=== PATIENT | male | born 1945 | race Caucasian/White ===

== ENCOUNTER 2020-08-22 22:54 | Inpatient (IN) | payer MEDICARE, BC ==
[~2020-08-22] VITALS: Ht 167.6 cm; Wt 64.9 kg
--- NOTE | 2020-08-22 23:20 | NUR ---
pt bibpa for aggressive behavior toward staff and breaking a window. Pt aaox1 breathing evenly and unlabored. Pt calm and cooperative at the moment. Upon assessment skin is warm, dry, and intact. Pt attached to monitor and pox. pt given blanket and call light within reach. will continue to monitor.
--- NOTE | 2020-08-22 23:20 | NUR ---
Note laurie in EDM - 08/23/20 at 0229 by ZENA pt bibpa for aggressive behavior toward staff and breathing a window. Pt aaox1 breathing evenly and unlabored. Pt calm and cooperative at the moment. Upon assessment skin is warm, dry, and intact. Pt attached to monitor and pox. pt given blanket and call light within reach. will continue to monitor.
[2020-08-23 00:57] LABS: BASOPHILS % (AUTO) 0.5 % (0.0-2.0); EOSINOPHILS % (AUTO) 2.1 % (0.0-6.0); HEMATOCRIT 34 % (39-51); HEMOGLOBIN 11.3 g/dL (13.5-17.5); LYMPHOCYTES # (AUTO) 1.6 /CMM (0.8-4.8); LYMPHOCYTES % (AUTO) 28.2 % (20.0-44.0); MEAN CORPUSCULAR HGB CONC 34 g/dl (31.0-36.0); MEAN CORPUSCULAR VOLUME 93 fL (80-96); MONOCYTES # (AUTO) 0.7 /CMM (0.1-1.30); MONOCYTES % (AUTO) 12.8 % (2.0-12.0); NEUTROPHILS # (AUTO) 3.1 /CMM (1.8-8.9); NEUTROPHILS % (AUTO) 56.4 % (43.0-81.0); PLATELET COUNT (AUTO) 197 /CMM (150-450); RED BLOOD CELL COUNT(AUTO) 3.59 MIL/uL (4.5-6.0); WHITE BLOOD COUNT (AUTO) 5.5 K/uL (4.3-11.0)
[2020-08-23] MEDS ORDERED: LIDOCAINE 2% JEL UROJET 10 ML MM ONE (01:08)
--- NOTE | 2020-08-23 01:21 | NUR ---
urine sent to lab
[2020-08-23 01:44] LABS: CALCIUM, SERUM 8.6 mg/dL (8.5-10.1); CARBON DIOXIDE 27 mmol/L (21-32); CHLORIDE 107 mmol/L (98-107); CREATININE 1.2 mg/dL (0.6-1.3); GLUCOSE 99 mg/dL (74-106); SODIUM SERUM 142 mmol/L (136-145); UREA NITROGEN, BLOOD 20 mg/dL (7-18)
[2020-08-23 01:45] LABS: BILIRUBIN,URINE NEGATIVE (NEGATIVE); COLOR,URINE YELLOW (YELLOW); LEUKOCYTE ESTERASE ,URINE LARGE (NEGATIVE); NITRITE, URINE POSITIVE (NEGATIVE); PROTEIN,URINE 100 mg/dl (NEGATIVE); UGLUCOSE NEGATIVE (NEGATIVE); UROBILINOGEN,URINE 0.2 EU/dL (0.2)
[2020-08-23 01:49] LABS: ACETAMINOPHEN 3 ug/ml (10-30); ALANINE AMINOTRANSFERASE 39 U/L (12-78); ALBUMIN 2.8 g/dL (3.4-5.0); ALCOHOL, BLOOD < 3 mg/dL (0-0); ALKALINE PHOSPHATASE 70 U/L (46-116); ASPARTATE AMINOTRANSFERASE 17 U/L (15-37); BILIRUBIN,DIRECT 0.1 mg/dL (0.0-0.2); BILIRUBIN,TOTAL 0.3 mg/dL (0.2-1.0); TOTAL PROTEIN, SERUM 5.9 g/dL (6.4-8.2)
[2020-08-23 01:52] LABS: BACTERIA,URINE Many /HPF (None Seen); RBC,URINE 21-50 /HPF (0-2); SQUAMOUS EPITHELIAL CELL,UR Few /HPF (None Seen); WBC,URINE TOO NUMEROUS TO COUN /HPF (0-3)
[2020-08-23] MEDS ORDERED: CEPHALEXIN MONOHYDRATE 500 MG CAPSULE PO ONE ×2 (02:30→02:48)
--- NOTE | 2020-08-23 02:34 | NUR ---
SPOKE TO [facility] FOR PSYCH EVAL.
--- NOTE | 2020-08-23 03:39 | NUR ---
KAY YANEZ CNC ROUTER OPERATOR AT BEDSIDE TO PSYCH EVAL.
--- NOTE | 2020-08-23 04:48 | NUR ---
Gave report to siena Tillman for crystal
[2020-08-23] MEDS ORDERED: DOCU-141 PO (04:50)
[2020-08-23] MEDS ORDERED: DIVA250T PO (04:53)
[2020-08-23] MEDS ORDERED: FAMO20TA8 PO (04:54)
[2020-08-23] MEDS ORDERED: BISA-79 RC (04:58)
[2020-08-23] MEDS ORDERED: MAG HYDROX/AL HYDROX/SIMETH 30 ML UDC PO PRN (05:30)
[2020-08-23] MEDS ORDERED: MAGNESIUM HYDROXIDE 30 ML UDC PO PRN (05:30)
[2020-08-23] MEDS ORDERED: BLOOD SUGAR DIAGNOSTIC 1 EACH STRIP IN ONE (05:30)
--- NOTE | 2020-08-23 05:30 | NUR ---
ADMISSION NOTES: ADMITTED THIS 75Y/O MALE FROM [facility] /INITIALLY FROM [facility] TO [facility] UNIT ON 5150 HOLD. PER HOLD PT. WAS CONFUSED, COULD NOT REMEMBER WHERE HE WAS OR WHO HE WAS. PT. KEPT TALKING ABOUT GOING TO [facility] TO FIX STUFF. PT. WAS TALKING IN CIRCLES, PER FLIGHT ENGINEER INSTRUCTOR JOANNA FROM SNF, PT. BECAME AGGRESSIVE TOWARDS STAFF CARING FOR HIM, HIT STAFF & BROKE A WINDOW. FLIGHT ENGINEER INSTRUCTOR ALSO REPORTED THAT PT. HAS BEEN HAVING INCREASING AGGRESSIVE BEHAVIORS, REFUSING MEALS & SOMETIMES MEDICATIONS. PT. IS DX WITH PSYCHOTIC DISORDER & ON DEPAKOTE & ZYPREXA. UPON FACE TO FACE ASSESSMENT PATIENT IS A & O X 1, VERY CONFUSED & FORGETFUL, UNCOOPERATIVE, ANXIOUS/RESTLESS AT TIMES, LABILE, HYPERVERBAL, DISORGANIZED, EASILY GETS AGITATED. DENIES SI /HI/AVH AT THIS TIME. PT. HAS POOR INSIGHT, POOR JUDGEMENT. PT. REFUSED TO SIGNS ADMISSION CONSENT PAPERS DUE TO MENTAL STATUS. PT. REFUSED FLU & PNEUMO VACCINE WELL. PT. REFUSED FULL BODY ASSESSMENT, RN TRANSFER WAS ABLE TO TAKE FEW PICTURES & PT. GOT ANXIOUS & AGITATED. BOTH MD AWARE AND NOTIFIED OF THE ADMISSION, BELONGINGS CONTRABAND WERE DONE, PT. RIGHTS DISCUSS BY RN TRANSFER, PROVIDED THE PT. WITH HANDBOOK, MEDICATIONS GUIDE, ENVIRONMENTAL SAFETY CHECK DONE, NON AMBULATORY/UNSTEADY GAIT, INCONTINENT, ENCOURAGED PT. VERBALIZE ANY FEELINGS/CONCERN TO STAFF, ORIENTED TO UNIT POLICY, NO ACUTE DISTRESS NOTED, VITAL SIGNS WNL, DENIES ANY PAIN AT THIS TIME, WILL CONTINUE TO MONITOR FOR Q15 SAFETY, MOOD AND BEHAVIOR.
[2020-08-23 05:39] VITALS: BP 132/77
[2020-08-23] MEDS ORDERED: LACO10SO3 PO (06:16)
[2020-08-23] MEDS ORDERED: MAGN400T26 PO (06:19)
[2020-08-23] MEDS ORDERED: METO25TA6 PO (06:20)
[2020-08-23] MEDS ORDERED: OLAN2.5T3 PO (06:23)
[2020-08-23] MEDS ORDERED: DEXT15DR6 EACHEYE (06:25)
[2020-08-23] MEDS ORDERED: MULT-1119 PO (06:28)
--- NOTE | 2020-08-23 06:56 | NUR ---
RN NOTE PATIENT NOTED WITH BOTH EYE REDNESS, DROOPING LOWER EYELIDS. CHARGE NURSE MADE AWARE. WILL ENDORSE TO AM RN TO INFORM MD. PATIENT IS AWAKE, CONFUSED, UP IN A CARTER CHAIR AT THIS TIME.
--- NOTE | 2020-08-23 07:09 | NUR ---
RN NOTE CALLED ISAEL GERMAIN AT [phone], LEFT A VOICEMAIL, ALSO CALLED BLAINE () AT [phone] & LEFT A VOICEMAIL REGARDING PATIENT'S ADMISSION AT [facility] UNIT. LEFT A CALL BACK NUMBER FOR ANY UPDATES.
--- NOTE | 2020-08-23 07:34 | NUR ---
RN NOTE PATIENT'S MEDICATIONS ENTERED BUT NEEDS TO BE RECONCILED BY MD. ENDORSED TO AM RN & CHARGE NURSE.
[2020-08-23 08:00] VITALS: BP 99/68
[2020-08-23] MEDS: Z GUARD REMEDY 2 OZ OINT TP SCH (09:13)
[2020-08-23] MEDS: DIVALPROEX SODIUM 125 MG CAP.SPRINK PO SCH ×2 (13:47→18:08)
--- NOTE | 2020-08-23 15:58 | NUR ---
thus far med compliant with psych meds.has home meds still to be ordered.
[2020-08-23 16:00] VITALS: BP 116/79
[2020-08-23] MEDS: METOPROLOL TARTRATE 25 MG TABLET PO SCH (18:00)
[2020-08-23] MEDS ORDERED: DIVALPROEX SODIUM 125 MG TABLET.DR PO SCH (18:00)
[2020-08-23] MEDS: LACOSAMIDE 50 MG TABLET PO SCH (18:08)
[2020-08-23] MEDS: MAGNESIUM OXIDE 400 MG TABLET PO SCH (18:08)
[2020-08-23] MEDS: CEPHALEXIN MONOHYDRATE 500 MG CAPSULE PO SCH ×2 (18:09→23:00)
[2020-08-23] MEDS: ENOXAPARIN SODIUM 40 MG/0.4 ML DISP.SYRIN SQ SCH (18:12)
--- NOTE | 2020-08-23 18:42 | NUR ---
maldonado mayer pile driving supervisor here and new meds ordered.pt. med compliant
[2020-08-23 19:50] VITALS: BP 106/77
[2020-08-23 20:40] VITALS: BP 106/77
[2020-08-23] MEDS: OLANZAPINE 2.5 MG TABLET PO SCH (22:04)
[2020-08-23] MEDS: ACETAMINOPHEN 325 MG TABLET PO PRN (22:20)
--- NOTE | 2020-08-23 22:21 | NUR ---
RN NOTE: BACK PAIN PATIENT VERBALIZED C/O BACK PAIN BUT UNABLE TO SCALE DUE TO CONFUSION. PRN TYLENOL 650 MG PO ADMINISTERED. WILL CONTINUE TO MONITOR.
--- NOTE | 2020-08-23 23:21 | NUR ---
RN NOTE: REFUSED KEFLEX PATIENT REFUSED TO TAKE KEFLEX SCHEDULED DESPITE OF EXPLANATIONS. WILL CONTINUE TO MONITOR FOR ANY CHANGES.
[2020-08-23] MEDS: Z GUARD REMEDY 4 OZ OINT TP PRN (23:22)
[2020-08-23] MEDS: POLYVINYL ALCOHOL 15 ML BOTTLE EACHEYE PRN (23:23)
[2020-08-24] MEDS: CEPHALEXIN MONOHYDRATE 500 MG CAPSULE PO SCH ×3 (05:17→21:32)
[2020-08-24 07:41] LABS: BASOPHILS % (AUTO) 0.4 % (0.0-2.0); EOSINOPHILS % (AUTO) 2.6 % (0.0-6.0); HEMATOCRIT 33 % (39-51); HEMOGLOBIN 11.2 g/dL (13.5-17.5); LYMPHOCYTES # (AUTO) 1.6 /CMM (0.8-4.8); MEAN CORPUSCULAR HGB CONC 33 g/dl (31.0-36.0); MEAN CORPUSCULAR VOLUME 96 fL (80-96); MONOCYTES # (AUTO) 0.6 /CMM (0.1-1.30); MONOCYTES % (AUTO) 12.3 % (2.0-12.0); NEUTROPHILS # (AUTO) 2.8 /CMM (1.8-8.9); NEUTROPHILS % (AUTO) 53.7 % (43.0-81.0); PLATELET COUNT (AUTO) 195 /CMM (150-450); RED BLOOD CELL COUNT(AUTO) 3.49 MIL/uL (4.5-6.0); WHITE BLOOD COUNT (AUTO) 5.2 K/uL (4.3-11.0)
[2020-08-24 07:57] LABS: CALCIUM, SERUM 8.3 mg/dL (8.5-10.1); CARBON DIOXIDE 28 mmol/L (21-32); CHLORIDE 106 mmol/L (98-107); CREATININE 1.1 mg/dL (0.6-1.3); GLUCOSE 106 mg/dL (74-106); MAGNESIUM 1.8 mg/dL (1.8-2.4); PHOSPHORUS 3.8 mg/dL (2.5-4.9); POTASSIUM 3.9 mmol/L (3.5-5.1); SODIUM SERUM 140 mmol/L (136-145); UREA NITROGEN, BLOOD 19 mg/dL (7-18)
[2020-08-24 08:00] VITALS: BP 102/60
[2020-08-24] MEDS ORDERED: SENN-261 PO (08:03)
[2020-08-24] MEDS ORDERED: HYDR28.32 TP (08:03)
[2020-08-24] MEDS ORDERED: LORA10TA7 PO (08:03)
[2020-08-24] MEDS ORDERED: POLY17PO4 PO (08:03)
[2020-08-24] MEDS ORDERED: CHOL100062 PO (08:03)
[2020-08-24] MEDS ORDERED: AMIN30LI27 PO (08:03)
[2020-08-24] MEDS ORDERED: ENOX40DI SQ (08:03)
[2020-08-24] MEDS ORDERED: ONDA4TAB5 PO (08:03)
[2020-08-24] MEDS ORDERED: LACT10SO3 PO (08:03)
[2020-08-24] MEDS ORDERED: ACET-868 PO (08:03)
[2020-08-24] MEDS ORDERED: ALLA266C2 TP (08:03)
[2020-08-24] MEDS ORDERED: ACID1TAB12 PO (08:03)
[2020-08-24] MEDS ORDERED: [UNRECOGNIZED DRUG - CODE] TP (08:03)
[2020-08-24 08:41] LABS: CHOLESTEROL 177 mg/dL (<200); HDL CHOLESTEROL 33 mg/dL (40-60); LDL 110 mg/dL (0-99); TRIGLYCERIDES 156 mg/dL (30-150)
[2020-08-24] MEDS: METOPROLOL TARTRATE 25 MG TABLET PO SCH ×2 (09:00→16:53)
[2020-08-24] MEDS: MULTIVITAMINS,THERAGRAN 1 UDTAB TABLET PO SCH (09:47)
[2020-08-24] MEDS: FAMOTIDINE (20 MG) 20 MG TABLET PO SCH (09:47)
[2020-08-24] MEDS: DOCUSATE SODIUM 100 MG CAPSULE PO SCH (09:48)
[2020-08-24] MEDS: MAGNESIUM OXIDE 400 MG TABLET PO SCH ×2 (09:48→16:51)
[2020-08-24] MEDS: BISACODYL (5 MG) 5 MG TABLET.DR PO SCH (09:48)
[2020-08-24] MEDS: LACOSAMIDE 50 MG TABLET PO SCH ×2 (09:48→16:54)
[2020-08-24] MEDS: DIVALPROEX SODIUM 125 MG CAP.SPRINK PO SCH ×3 (09:50→16:52)
[2020-08-24] MEDS: Z GUARD REMEDY 2 OZ OINT TP SCH (09:51)
[2020-08-24] MEDS: ASPIRIN 81 MG TAB.CHEW PO SCH (14:01)
[2020-08-24 16:00] VITALS: BP 108/61
[2020-08-24] MEDS: ENOXAPARIN SODIUM 40 MG/0.4 ML DISP.SYRIN SQ SCH (17:14)
[2020-08-24 20:51] VITALS: BP 115/69
[2020-08-24] MEDS: OLANZAPINE 2.5 MG TABLET PO SCH (21:31)
[2020-08-24] MEDS: ATORVASTATIN 10 MG TABLET PO SCH (22:00)
[2020-08-24] MEDS: TEMAZEPAM 7.5 MG CAPSULE PO PRN (22:08)
--- NOTE | 2020-08-24 22:09 | NUR ---
GPS RN NOTES: RESTORIL 7.5MG GIVEN PO FOR SLEEP AT 2203. WILL CONTINUE TO MONITOR.
[2020-08-25] MEDS: CEPHALEXIN MONOHYDRATE 500 MG CAPSULE PO SCH ×3 (05:20→21:49)
--- NOTE | 2020-08-25 06:43 | NUR ---
GPS RN CLOSING NOTES: PATIENT SLEEPING COMFORTABLY IN BED. PATIENT SLEPT 7HRS THIS SHIFT. WEEKLY SKIN ASSESSMENT DONE, PICTURES TAKEN AND PLACED IN PATIENT CHART. NO NEW SKIN ISSUES NOTED. NO C/O PAIN. NO S/S OF DISTRESS. RESPIRATION EVEN AND UNLABORED WITH EQUAL RISE AND FALL OF THE CHEST ON ROOM AIR. ALL PATIENT CARE NEEDS HAVE BEEN MET ANTICIPATED. BED IN LOWEST POSITION AND LOCKED WITH SIDE RAILS UP X2. WILL CONTINUE TO MONITOR FOR SAFETY, MOOD AND BEHAVIOR AND ENDORSE TO AM SHIFT.
[2020-08-25 08:00] VITALS: BP 97/56
[2020-08-25] MEDS: METOPROLOL TARTRATE 25 MG TABLET PO SCH ×2 (09:00→16:24)
[2020-08-25] MEDS: DOCUSATE SODIUM 100 MG CAPSULE PO SCH (09:11)
[2020-08-25] MEDS: BISACODYL (5 MG) 5 MG TABLET.DR PO SCH (09:11)
[2020-08-25] MEDS: ASPIRIN 81 MG TAB.CHEW PO SCH (09:11)
[2020-08-25] MEDS: DIVALPROEX SODIUM 125 MG CAP.SPRINK PO SCH ×3 (09:11→16:23)
[2020-08-25] MEDS: MULTIVITAMINS,THERAGRAN 1 UDTAB TABLET PO SCH (09:12)
[2020-08-25] MEDS: FAMOTIDINE (20 MG) 20 MG TABLET PO SCH (09:12)
[2020-08-25] MEDS: MAGNESIUM OXIDE 400 MG TABLET PO SCH ×2 (09:12→16:23)
[2020-08-25] MEDS: LACOSAMIDE 50 MG TABLET PO SCH ×2 (09:12→16:23)
[2020-08-25] MEDS: Z GUARD REMEDY 2 OZ OINT TP SCH (09:13)
[2020-08-25 16:00] VITALS: BP 96/55
[2020-08-25] MEDS: ENOXAPARIN SODIUM 40 MG/0.4 ML DISP.SYRIN SQ SCH (17:21)
[2020-08-25 20:10] VITALS: BP 94/65
[2020-08-25] MEDS: ATORVASTATIN 10 MG TABLET PO SCH (21:49)
[2020-08-25] MEDS: SENNOSIDES 8.6 MG TABLET PO SCH (21:49)
[2020-08-25] MEDS: OLANZAPINE 2.5 MG TABLET PO SCH (21:49)
[2020-08-25] MEDS: POLYETHYLENE GLYCOL 3350 17 GM POWD.PACK PO SCH (21:49)
[2020-08-26] MEDS: CEPHALEXIN MONOHYDRATE 500 MG CAPSULE PO SCH ×3 (05:07→21:05)
[2020-08-26 08:00] VITALS: BP 106/47
[2020-08-26] MEDS: DOCUSATE SODIUM 100 MG CAPSULE PO SCH (09:00)
[2020-08-26] MEDS: Z GUARD REMEDY 2 OZ OINT TP SCH (09:00)
[2020-08-26] MEDS: CHOLECALCIFEROL 1,000 UNIT TABLET (VIT D3) PO SCH (09:00)
[2020-08-26] MEDS: LACOSAMIDE 50 MG TABLET PO SCH ×2 (09:00→16:11)
[2020-08-26] MEDS ORDERED: ENOXAPARIN SODIUM 40 MG/0.4 ML DISP.SYRIN SQ SCH (09:00)
[2020-08-26] MEDS: BISACODYL (5 MG) 5 MG TABLET.DR PO SCH (09:00)
[2020-08-26] MEDS: FAMOTIDINE (20 MG) 20 MG TABLET PO SCH (09:00)
[2020-08-26] MEDS: MAGNESIUM OXIDE 400 MG TABLET PO SCH ×2 (09:00→16:11)
[2020-08-26] MEDS: ASPIRIN 81 MG TAB.CHEW PO SCH (09:00)
[2020-08-26] MEDS: DIVALPROEX SODIUM 125 MG CAP.SPRINK PO SCH ×3 (09:00→16:12)
[2020-08-26] MEDS: METOPROLOL TARTRATE 25 MG TABLET PO SCH ×2 (09:00→16:17)
[2020-08-26] MEDS: ACIDOPHILUS/BULGARICUS 1 EACH TAB.CHEW PO SCH (09:00)
[2020-08-26] MEDS: MULTIVITAMINS,THERAGRAN 1 UDTAB TABLET PO SCH (09:00)
--- NOTE | 2020-08-26 09:28 | NUR ---
WOUND CARE CONSULT: PT PRESENTS WITH SACRAL SCARRING AND DRY SCRATCH/ABRASION TO RT LOWER LEG, RT ARM AND HAND, PRESENT ON ADMISSION. RECOMMENDATIONS MADE FOR SKIN PROTECTION. DISCUSSED WITH NURSING STAFF. MD IN AGREEMENT WITH PLAN OF CARE.
--- NOTE | 2020-08-26 09:57 | NUR ---
Family Contact: SW called the pts , Eileen ([phone]), and left a voicemail stating that the SW would like to speak to her regarding the pts treatment plan.
--- NOTE | 2020-08-26 15:24 | NUR ---
Family Contact: Pts , Eileen ([phone]), called the SW back and discussed the pts history and treatment plan. She stated that she wanted the pt to return to [facility]. Pts states that she cannot take care of him at home anymore. SW stated that she will work it out with the facility and keep her updated.
[2020-08-26 16:00] VITALS: BP 117/62
--- NOTE | 2020-08-26 16:05 | NUR ---
Facility Contact: SW called [facility] ([phone]) and spoke to the health and safety coordinator, Radha, who spoke to the DON about whether or not the pt can return. SW was informed that the pt cannot return because he needs a locked facility and was informed that their sister facility, [facility], would be willing to accept.
--- NOTE | 2020-08-26 16:11 | NUR ---
Initial Discharge Plan: Pt currently resides at [facility] located at [address] [place] [address]; ([phone]). Per pts , Eileen ([phone]), she would like the pt to return. SW will work with the pt and the MD regarding appropriate discharge planning. SW will form a safe and proper discharge.
[2020-08-26] MEDS: CLOTRIMAZOLE 1% 15 GM TUBE TP SCH (16:17)
[2020-08-26] MEDS: ENOXAPARIN SODIUM 40 MG/0.4 ML DISP.SYRIN SQ SCH (18:05)
[2020-08-26 20:00] VITALS: BP 109/64
[2020-08-26 20:05] VITALS: BP 109/64
[2020-08-26 20:59] VITALS: BP 114/45
[2020-08-26] MEDS: SENNOSIDES 8.6 MG TABLET PO SCH (21:54)
[2020-08-26] MEDS: ATORVASTATIN 10 MG TABLET PO SCH (21:55)
[2020-08-26] MEDS: POLYETHYLENE GLYCOL 3350 17 GM POWD.PACK PO SCH (21:55)
[2020-08-26] MEDS: OLANZAPINE 2.5 MG TABLET PO SCH (21:55)
[2020-08-26] MEDS: POLYVINYL ALCOHOL 15 ML BOTTLE EACHEYE PRN (23:15)
--- NOTE | 2020-08-27 00:05 | NUR ---
RN NOTE: INSOMNIA PATIENT IS UNABLE TO SLEEP, PRN RESTORIL 7.5 MG 1 CAP PO ADMINISTERED. WILL CONTINUE TO MONITOR.
[2020-08-27] MEDS: Z GUARD REMEDY 4 OZ OINT TP PRN (03:05)
--- NOTE | 2020-08-27 03:49 | NUR ---
RN NOTE PATIENT IS ASLEEP COMFORTABLY AT THIS TIME.
[2020-08-27] MEDS: CEPHALEXIN MONOHYDRATE 500 MG CAPSULE PO SCH (05:05)
[2020-08-27 08:00] VITALS: BP 105/57
[2020-08-27] MEDS: METOPROLOL TARTRATE 25 MG TABLET PO SCH ×2 (09:00→17:00)
[2020-08-27] MEDS: ASPIRIN 81 MG TAB.CHEW PO SCH (09:26)
[2020-08-27] MEDS: BISACODYL (5 MG) 5 MG TABLET.DR PO SCH (09:26)
[2020-08-27] MEDS: ACIDOPHILUS/BULGARICUS 1 EACH TAB.CHEW PO SCH (09:26)
[2020-08-27] MEDS: DIVALPROEX SODIUM 125 MG CAP.SPRINK PO SCH ×3 (09:26→17:28)
[2020-08-27] MEDS: CHOLECALCIFEROL 1,000 UNIT TABLET (VIT D3) PO SCH (09:26)
[2020-08-27] MEDS: MAGNESIUM OXIDE 400 MG TABLET PO SCH ×2 (09:26→17:30)
[2020-08-27] MEDS: MULTIVITAMINS,THERAGRAN 1 UDTAB TABLET PO SCH (09:26)
[2020-08-27] MEDS: FAMOTIDINE (20 MG) 20 MG TABLET PO SCH (09:27)
[2020-08-27] MEDS: LACOSAMIDE 50 MG TABLET PO SCH ×2 (09:27→17:30)
[2020-08-27] MEDS: DOCUSATE SODIUM 100 MG CAPSULE PO SCH (09:27)
[2020-08-27] MEDS: CLOTRIMAZOLE 1% 15 GM TUBE TP SCH ×2 (09:28→17:48)
[2020-08-27] MEDS: Z GUARD REMEDY 2 OZ OINT TP SCH (09:28)
--- NOTE | 2020-08-27 09:57 | NUR ---
WOUND CARE CONSULT: PT SEEN FOR REDNESS TO FACE AND CHEST AREA. DEFER TO N.P. FOR SKIN CONDITION. CASING MAN DISCUSSING WITH N.P. TODAY. WILL SEE PRN.
[2020-08-27] MEDS: ENSURE ENLIVE 237 ML LIQUID (VANILLA) PO SCH ×2 (12:53→17:30)
[2020-08-27 16:00] VITALS: BP 94/53
[2020-08-27] MEDS: ENOXAPARIN SODIUM 40 MG/0.4 ML DISP.SYRIN SQ SCH (17:32)
[2020-08-27] MEDS: POLYVINYL ALCOHOL 15 ML BOTTLE EACHEYE PRN (17:48)
[2020-08-27 20:00] VITALS: BP 118/88
[2020-08-27] MEDS: POLYETHYLENE GLYCOL 3350 17 GM POWD.PACK PO SCH (21:32)
[2020-08-27] MEDS: SENNOSIDES 8.6 MG TABLET PO SCH (21:33)
[2020-08-27] MEDS: ATORVASTATIN 10 MG TABLET PO SCH (21:33)
[2020-08-27] MEDS: TEMAZEPAM 7.5 MG CAPSULE PO PRN ×2 (21:33)
[2020-08-27] MEDS: OLANZAPINE 2.5 MG TABLET PO SCH (21:33)
[2020-08-28 08:00] VITALS: BP 107/72
[2020-08-28] MEDS: METOPROLOL TARTRATE 25 MG TABLET PO SCH ×2 (09:00→16:46)
[2020-08-28] MEDS: DOCUSATE SODIUM 100 MG CAPSULE PO SCH (09:28)
[2020-08-28] MEDS: MULTIVITAMINS,THERAGRAN 1 UDTAB TABLET PO SCH (09:28)
[2020-08-28] MEDS: CHOLECALCIFEROL 1,000 UNIT TABLET (VIT D3) PO SCH (09:28)
[2020-08-28] MEDS: ASPIRIN 81 MG TAB.CHEW PO SCH (09:28)
[2020-08-28] MEDS: MAGNESIUM OXIDE 400 MG TABLET PO SCH ×2 (09:28→16:45)
[2020-08-28] MEDS: ACIDOPHILUS/BULGARICUS 1 EACH TAB.CHEW PO SCH (09:28)
[2020-08-28] MEDS: DIVALPROEX SODIUM 125 MG CAP.SPRINK PO SCH ×3 (09:28→16:45)
[2020-08-28] MEDS: LACOSAMIDE 50 MG TABLET PO SCH ×2 (09:29→16:45)
[2020-08-28] MEDS: BISACODYL (5 MG) 5 MG TABLET.DR PO SCH (09:29)
[2020-08-28] MEDS: ENSURE ENLIVE 237 ML LIQUID (VANILLA) PO SCH ×3 (09:29→16:45)
[2020-08-28] MEDS: FAMOTIDINE (20 MG) 20 MG TABLET PO SCH (09:43)
[2020-08-28] MEDS: CLOTRIMAZOLE 1% 15 GM TUBE TP SCH ×2 (09:44→17:09)
[2020-08-28] MEDS: Z GUARD REMEDY 2 OZ OINT TP SCH (09:44)
--- NOTE | 2020-08-28 15:36 | NUR ---
Family Contact: SW called the pts , Eileen ([phone]), and discussed the pts discharge placement about how the pt cannot return to [facility] and so the SW informed her about [facility]. Pts stated that she was not happy to hear it but she will allow the SW to send a referral.
[2020-08-28 16:00] VITALS: BP 95/69
--- NOTE | 2020-08-28 16:12 | NUR ---
SNF Referral: SHANNON faxed a referral to [facility] with attn Smita to the fax number: [phone].
[2020-08-28] MEDS: ENOXAPARIN SODIUM 40 MG/0.4 ML DISP.SYRIN SQ SCH (17:19)
[2020-08-28 20:02] VITALS: BP 126/78
[2020-08-28 20:21] VITALS: BP 126/78
[2020-08-28] MEDS: ATORVASTATIN 10 MG TABLET PO SCH (21:30)
[2020-08-28] MEDS: SENNOSIDES 8.6 MG TABLET PO SCH (21:30)
[2020-08-28] MEDS: OLANZAPINE 2.5 MG TABLET PO SCH (21:32)
[2020-08-28] MEDS: POLYETHYLENE GLYCOL 3350 17 GM POWD.PACK PO SCH (22:00)
--- NOTE | 2020-08-28 22:04 | NUR ---
RN NOTE PATIENT REFUSED MIRALAX SCHEDULED. PATIENT HAD LARGE BM DURING DAY SHIFT TODAY, PER AM FERTILIZER SUPERVISOR. WILL CONTINUE TO MONITOR.
[2020-08-28] MEDS: ACETAMINOPHEN 325 MG TABLET PO PRN (22:26)
--- NOTE | 2020-08-28 22:32 | NUR ---
RN NOTE: BACK PAIN PATIENT VERBALIZED C/O BACK PAIN BUT UNABLE TO SCALE DUE TO CONFUSION. PRN TYLENOL 650 MG PO ADMINISTERED. WILL CONTINUE TO MONITOR.
[2020-08-29 06:56] LABS: BASOPHILS % (AUTO) 0.4 % (0.0-2.0); HEMATOCRIT 34 % (39-51); HEMOGLOBIN 11.7 g/dL (13.5-17.5); LYMPHOCYTES # (AUTO) 2.2 /CMM (0.8-4.8); LYMPHOCYTES % (AUTO) 31.2 % (20.0-44.0); MEAN CORPUSCULAR HGB CONC 34 g/dl (31.0-36.0); MEAN CORPUSCULAR VOLUME 93 fL (80-96); MONOCYTES # (AUTO) 0.8 /CMM (0.1-1.30); MONOCYTES % (AUTO) 11.5 % (2.0-12.0); NEUTROPHILS # (AUTO) 3.8 /CMM (1.8-8.9); NEUTROPHILS % (AUTO) 53.9 % (43.0-81.0); PLATELET COUNT (AUTO) 243 /CMM (150-450); RED BLOOD CELL COUNT(AUTO) 3.66 MIL/uL (4.5-6.0)
[2020-08-29 07:18] LABS: ALBUMIN 2.8 g/dL (3.4-5.0); BILIRUBIN,TOTAL 0.3 mg/dL (0.2-1.0); CALCIUM, SERUM 8.1 mg/dL (8.5-10.1); CREATININE 1.1 mg/dL (0.6-1.3); TOTAL PROTEIN, SERUM 5.9 g/dL (6.4-8.2)
[2020-08-29 08:00] VITALS: BP 115/83
[2020-08-29] MEDS: BISACODYL (5 MG) 5 MG TABLET.DR PO SCH (09:41)
[2020-08-29] MEDS: MULTIVITAMINS,THERAGRAN 1 UDTAB TABLET PO SCH (09:41)
[2020-08-29] MEDS: FAMOTIDINE (20 MG) 20 MG TABLET PO SCH (09:41)
[2020-08-29] MEDS: MAGNESIUM OXIDE 400 MG TABLET PO SCH ×2 (09:41→16:19)
[2020-08-29] MEDS: CHOLECALCIFEROL 1,000 UNIT TABLET (VIT D3) PO SCH (09:41)
[2020-08-29] MEDS: LACOSAMIDE 50 MG TABLET PO SCH ×2 (09:41→16:19)
[2020-08-29] MEDS: DOCUSATE SODIUM 100 MG CAPSULE PO SCH (09:41)
[2020-08-29] MEDS: ASPIRIN 81 MG TAB.CHEW PO SCH (09:42)
[2020-08-29] MEDS: DIVALPROEX SODIUM 125 MG CAP.SPRINK PO SCH ×3 (09:42→16:19)
[2020-08-29] MEDS: METOPROLOL TARTRATE 25 MG TABLET PO SCH ×2 (09:42→16:20)
[2020-08-29] MEDS: ENSURE ENLIVE 237 ML LIQUID (VANILLA) PO SCH ×3 (09:42→16:19)
[2020-08-29] MEDS: ACIDOPHILUS/BULGARICUS 1 EACH TAB.CHEW PO SCH (09:42)
[2020-08-29] MEDS: CLOTRIMAZOLE 1% 15 GM TUBE TP SCH ×2 (09:45→16:27)
[2020-08-29] MEDS: Z GUARD REMEDY 2 OZ OINT TP SCH (09:45)
--- NOTE | 2020-08-29 09:53 | NUR ---
SNF Contact: Smita ([phone]) from [facility] contacted the SW and stated that the pt was accepted to their facility.
--- NOTE | 2020-08-29 09:53 | NUR ---
Family Contact: SW called the pts , Eileen ([phone]), and informed her that the pt was accepted to the facility and that the SW will inform her when the pts discharge date will be and will arrange everything.
[2020-08-29 16:00] VITALS: BP 93/58
[2020-08-29] MEDS: ENOXAPARIN SODIUM 40 MG/0.4 ML DISP.SYRIN SQ SCH (17:19)
[2020-08-29 20:09] VITALS: BP 112/64
[2020-08-29] MEDS: LORAZEPAM 0.5 MG TABLET PO PRN (20:09)
[2020-08-29] MEDS: LORATADINE 10 MG TABLET PO PRN (20:10)
--- NOTE | 2020-08-29 20:15 | NUR ---
GPS RN NOTES: ATIVAN CLARITIN 10MG/1TAB GIVEN PO PRN FOR ITCHINESS AT 2009. WILL CONTINUE TO MONITOR.
[2020-08-29] MEDS: OLANZAPINE 2.5 MG TABLET PO SCH (21:50)
[2020-08-29] MEDS: SENNOSIDES 8.6 MG TABLET PO SCH (21:51)
[2020-08-29] MEDS: POLYETHYLENE GLYCOL 3350 17 GM POWD.PACK PO SCH (21:51)
[2020-08-29] MEDS: ATORVASTATIN 10 MG TABLET PO SCH (21:51)
[2020-08-29] MEDS: POLYVINYL ALCOHOL 15 ML BOTTLE EACHEYE PRN (22:05)
--- NOTE | 2020-08-30 03:42 | NUR ---
GPS RN NOTES: ATIVAN 0.5MG/1TAB GIVEN PO PRN FOR ANXIETY AT 2008. WILL CONTINUE TO MONITOR.
--- NOTE | 2020-08-30 06:51 | NUR ---
GPS RN CLOSING NOTES: PATIENT IS SLEEPING COMFORTABLY IN BED. PATIENT SLEPT 5HRS THIS SHIFT. NO C/O PAIN. NO S/S OF DISTRESS. RESPIRATION EVEN AND UNLABORED WITH EQUAL RISE AND FALL OF THE CHEST ON ROOM AIR. ALL PATIENT CARE NEEDS HAVE BEEN MET ANTICIPATED. BED IN LOWEST POSITION AND LOCKED WITH SIDE RAILS UP X2. WILL CONTINUE TO MONITOR FOR SAFETY, MOOD AND BEHAVIOR AND ENDORSE TO AM SHIFT.
[2020-08-30 08:00] VITALS: BP 118/67
[2020-08-30] MEDS: DOCUSATE SODIUM 100 MG CAPSULE PO SCH (09:37)
[2020-08-30] MEDS: FAMOTIDINE (20 MG) 20 MG TABLET PO SCH (09:37)
[2020-08-30] MEDS: BISACODYL (5 MG) 5 MG TABLET.DR PO SCH (09:37)
[2020-08-30] MEDS: MAGNESIUM OXIDE 400 MG TABLET PO SCH ×2 (09:37→16:15)
[2020-08-30] MEDS: DIVALPROEX SODIUM 125 MG CAP.SPRINK PO SCH ×3 (09:37→16:15)
[2020-08-30] MEDS: ASPIRIN 81 MG TAB.CHEW PO SCH (09:37)
[2020-08-30] MEDS: LACOSAMIDE 50 MG TABLET PO SCH ×2 (09:38→16:16)
[2020-08-30] MEDS: ENSURE ENLIVE 237 ML LIQUID (VANILLA) PO SCH ×3 (09:38→16:17)
[2020-08-30] MEDS: MULTIVITAMINS,THERAGRAN 1 UDTAB TABLET PO SCH (09:38)
[2020-08-30] MEDS: METOPROLOL TARTRATE 25 MG TABLET PO SCH ×2 (09:38→16:16)
[2020-08-30] MEDS: ACIDOPHILUS/BULGARICUS 1 EACH TAB.CHEW PO SCH (09:38)
[2020-08-30] MEDS: CHOLECALCIFEROL 1,000 UNIT TABLET (VIT D3) PO SCH (09:38)
[2020-08-30] MEDS: Z GUARD REMEDY 2 OZ OINT TP SCH (09:40)
[2020-08-30] MEDS: CLOTRIMAZOLE 1% 15 GM TUBE TP SCH ×2 (09:42→16:16)
[2020-08-30] MEDS: POLYVINYL ALCOHOL 15 ML BOTTLE EACHEYE PRN ×2 (09:42→22:30)
[2020-08-30 16:00] VITALS: BP 97/58
[2020-08-30] MEDS: ENOXAPARIN SODIUM 40 MG/0.4 ML DISP.SYRIN SQ SCH (17:09)
--- NOTE | 2020-08-30 17:21 | NUR ---
GPS/RN-NOTES PATIENT IN THE DAY ROOM UP IN THE CARTER CHAIR, AWAKE, ALERT, NO ACUTE DISTRESS NOTED. ENCOURAGED PATIENT TO INCREASE FLUID AND FOOD INTAKE DUE TO HIGH BUN. REPOSITIONED Q2HR. ALL NEEDS ATTENDED AND ANTICIPATED.GOOD CHARLES CARE RENDERED.WILL ENDORSE TO INCOMING NURSE FOR CONTINUITY OF CARE.
[2020-08-30 20:22] VITALS: BP 141/62
[2020-08-30] MEDS: LORAZEPAM 0.5 MG TABLET PO PRN (21:08)
[2020-08-30] MEDS: LORATADINE 10 MG TABLET PO PRN (21:08)
--- NOTE | 2020-08-30 21:09 | NUR ---
GPS RN NOTES: ATIVAN 0.5MG/1TAB GIVEN PO PRN FOR ANXIETY AT 2107. WILL CONTINUE TO MONITOR.
--- NOTE | 2020-08-30 21:10 | NUR ---
GPS RN NOTES: CLARITIN 10MG/1TAB GIVEN PO PRN FOR ITCHINESS AT 2107. WILL CONTINUE TO MONITOR.
[2020-08-30] MEDS: SENNOSIDES 8.6 MG TABLET PO SCH (22:00)
[2020-08-30] MEDS: POLYETHYLENE GLYCOL 3350 17 GM POWD.PACK PO SCH (22:00)
[2020-08-30] MEDS: ATORVASTATIN 10 MG TABLET PO SCH (22:05)
[2020-08-30] MEDS: OLANZAPINE 2.5 MG TABLET PO SCH (22:05)
--- NOTE | 2020-08-30 22:40 | NUR ---
GPS RN NOTES: PATIENT HAD A LARGE LOOSE STOOL. 22:00 ERASMO AND KOREY HELD. WILL CONTINUE TO MONITOR AND ENDORSE TO AM SHIFT.
--- NOTE | 2020-08-31 06:50 | NUR ---
GPS RN CLOSING NOTES: PATIENT IS SLEEPING COMFORTABLY IN BED. PATIENT SLEPT 6HRS THIS SHIFT. NO C/O PAIN OR S/S OF DISTRESS THIS SHIFT. RESPIRATION EVEN AND UNLABORED WITH EQUAL RISE AND FALL OF THE CHEST ON ROOM AIR. ALL PATIENT CARE NEEDS HAVE BEEN MET ANTICIPATED. BED IN LOWEST POSITION AND LOCKED WITH SIDE RAILS UP X2. WILL CONTINUE TO MONITOR FOR SAFETY, MOOD AND BEHAVIOR AND ENDORSE TO AM SHIFT.
[2020-08-31 08:00] VITALS: BP 110/59
[2020-08-31] MEDS: METOPROLOL TARTRATE 25 MG TABLET PO SCH ×2 (09:00→17:00)
[2020-08-31] MEDS: MAGNESIUM OXIDE 400 MG TABLET PO SCH ×2 (09:31→17:36)
[2020-08-31] MEDS: ACIDOPHILUS/BULGARICUS 1 EACH TAB.CHEW PO SCH (09:31)
[2020-08-31] MEDS: CHOLECALCIFEROL 1,000 UNIT TABLET (VIT D3) PO SCH (09:31)
[2020-08-31] MEDS: DIVALPROEX SODIUM 125 MG CAP.SPRINK PO SCH ×3 (09:31→17:36)
[2020-08-31] MEDS: BISACODYL (5 MG) 5 MG TABLET.DR PO SCH (09:31)
[2020-08-31] MEDS: LACOSAMIDE 50 MG TABLET PO SCH ×2 (09:31→17:36)
[2020-08-31] MEDS: ASPIRIN 81 MG TAB.CHEW PO SCH (09:31)
[2020-08-31] MEDS: FAMOTIDINE (20 MG) 20 MG TABLET PO SCH (09:31)
[2020-08-31] MEDS: ENSURE ENLIVE 237 ML LIQUID (VANILLA) PO SCH ×3 (09:33→17:36)
[2020-08-31] MEDS: Z GUARD REMEDY 2 OZ OINT TP SCH (09:33)
[2020-08-31] MEDS: DOCUSATE SODIUM 100 MG CAPSULE PO SCH (09:33)
[2020-08-31] MEDS: MULTIVITAMINS,THERAGRAN 1 UDTAB TABLET PO SCH (09:33)
[2020-08-31] MEDS: CLOTRIMAZOLE 1% 15 GM TUBE TP SCH ×2 (09:35→17:39)
[2020-08-31 16:00] VITALS: BP 82/55
[2020-08-31] MEDS: ENOXAPARIN SODIUM 40 MG/0.4 ML DISP.SYRIN SQ SCH (18:27)
[2020-08-31 19:01] VITALS: BP 115/57
[2020-08-31 20:00] VITALS: BP 110/70
[2020-08-31] MEDS: LORATADINE 10 MG TABLET PO PRN (20:48)
[2020-08-31] MEDS: LORAZEPAM 0.5 MG TABLET PO PRN (20:48)
--- NOTE | 2020-08-31 20:50 | NUR ---
GPS RN NOTES: PATIENT RESTLESS, ANXIOUS, ITCHY, ATIVAN 0.5MG/1TAB AND CLARITIN 10MG/1TAB GIVEN PO PRN FOR ANXIETY AND ITCHINESS AT 2047. WILL CONTINUE TO MONITOR.
[2020-08-31] MEDS: POLYETHYLENE GLYCOL 3350 17 GM POWD.PACK PO SCH (21:39)
[2020-08-31] MEDS: ATORVASTATIN 10 MG TABLET PO SCH (21:39)
[2020-08-31] MEDS: OLANZAPINE 2.5 MG TABLET PO SCH (21:39)
[2020-08-31] MEDS: SENNOSIDES 8.6 MG TABLET PO SCH (21:39)
[2020-08-31] MEDS: POLYVINYL ALCOHOL 15 ML BOTTLE EACHEYE PRN (22:32)
[2020-08-31] MEDS: Z GUARD REMEDY 4 OZ OINT TP PRN (23:39)
--- NOTE | 2020-09-01 06:40 | NUR ---
GPS RN CLOSING NOTES: PATIENT IS SLEEPING COMFORTABLY IN BED. PATIENT SLEPT 7HRS THIS SHIFT. NO C/O PAIN OR S/S OF DISTRESS THIS SHIFT. RESPIRATION EVEN AND UNLABORED WITH EQUAL RISE AND FALL OF THE CHEST ON ROOM AIR. ALL PATIENT CARE NEEDS HAVE BEEN MET ANTICIPATED. BED IN LOWEST POSITION AND LOCKED WITH SIDE RAILS UP X2. WILL CONTINUE TO MONITOR FOR SAFETY, MOOD AND BEHAVIOR AND ENDORSE TO AM SHIFT.
[2020-09-01 08:00] VITALS: BP 144/63
[2020-09-01] MEDS: CHOLECALCIFEROL 1,000 UNIT TABLET (VIT D3) PO SCH (09:18)
[2020-09-01] MEDS: ACIDOPHILUS/BULGARICUS 1 EACH TAB.CHEW PO SCH (09:18)
[2020-09-01] MEDS: MAGNESIUM OXIDE 400 MG TABLET PO SCH ×2 (09:18→16:54)
[2020-09-01] MEDS: BISACODYL (5 MG) 5 MG TABLET.DR PO SCH (09:18)
[2020-09-01] MEDS: DOCUSATE SODIUM 100 MG CAPSULE PO SCH (09:18)
[2020-09-01] MEDS: DIVALPROEX SODIUM 125 MG CAP.SPRINK PO SCH ×3 (09:18→16:53)
[2020-09-01] MEDS: MULTIVITAMINS,THERAGRAN 1 UDTAB TABLET PO SCH (09:19)
[2020-09-01] MEDS: METOPROLOL TARTRATE 25 MG TABLET PO SCH ×2 (09:19→16:55)
[2020-09-01] MEDS: FAMOTIDINE (20 MG) 20 MG TABLET PO SCH (09:19)
[2020-09-01] MEDS: LACOSAMIDE 50 MG TABLET PO SCH ×2 (09:19→16:53)
[2020-09-01] MEDS: Z GUARD REMEDY 2 OZ OINT TP SCH (09:19)
[2020-09-01] MEDS: ASPIRIN 81 MG TAB.CHEW PO SCH (09:19)
[2020-09-01] MEDS: ENSURE ENLIVE 237 ML LIQUID (VANILLA) PO SCH ×3 (09:20→16:55)
[2020-09-01] MEDS: CLOTRIMAZOLE 1% 15 GM TUBE TP SCH ×2 (09:20→16:54)
--- NOTE | 2020-09-01 10:06 | NUR ---
Family Contact: Pts , Eileen ([phone]), called the SW and stated that she wanted an update on the pt over the weekend. SW explained that she was not here so she can only go into the notes to get information which the SW did. SW then informed her that the pt was accepted to [facility] but does not have a discharge date at this time. SW stated that she will keep the pts updated.
[2020-09-01 16:00] VITALS: BP 103/56
[2020-09-01] MEDS: POLYVINYL ALCOHOL 15 ML BOTTLE EACHEYE PRN (16:54)
[2020-09-01] MEDS: ENOXAPARIN SODIUM 40 MG/0.4 ML DISP.SYRIN SQ SCH (17:02)
[2020-09-01 20:00] VITALS: BP 100/66
--- NOTE | 2020-09-01 20:00 | NUR ---
GPS RN NOTE: RECEIVED PATIENT IN HALLWAY SITTING IN CARTER CHAIR, AWAKE A/O X1. HAS FLAT AFFECT, DISORGANIZED, CONFUSED, RESTLESS. DENIES SI AT THIS TIME, DENIES PAIN. NO S/S OF DISTRESS. WILL CONTINUE TO MONITOR Q 15 MIN FOR SAFETY, MOOD AND BEHAVIOR.
[2020-09-01] MEDS: POLYETHYLENE GLYCOL 3350 17 GM POWD.PACK PO SCH (22:00)
[2020-09-01] MEDS: SENNOSIDES 8.6 MG TABLET PO SCH (22:49)
[2020-09-01] MEDS: ATORVASTATIN 10 MG TABLET PO SCH (22:49)
[2020-09-01] MEDS: OLANZAPINE 2.5 MG TABLET PO SCH (22:49)
[2020-09-01] MEDS: LORAZEPAM 0.5 MG TABLET PO PRN (22:49)
--- NOTE | 2020-09-01 22:50 | NUR ---
miralax held pt had large bm tonight.
[2020-09-02 08:00] VITALS: BP 106/61
--- NOTE | 2020-09-02 08:45 | NUR ---
BP-106/61, p-71, will hold bp med.
[2020-09-02] MEDS: METOPROLOL TARTRATE 25 MG TABLET PO SCH ×2 (09:00→17:00)
[2020-09-02] MEDS: DIVALPROEX SODIUM 125 MG CAP.SPRINK PO SCH ×3 (09:46→17:18)
[2020-09-02] MEDS: ASPIRIN 81 MG TAB.CHEW PO SCH (09:47)
[2020-09-02] MEDS: MULTIVITAMINS,THERAGRAN 1 UDTAB TABLET PO SCH (09:47)
[2020-09-02] MEDS: CHOLECALCIFEROL 1,000 UNIT TABLET (VIT D3) PO SCH (09:47)
[2020-09-02] MEDS: FAMOTIDINE (20 MG) 20 MG TABLET PO SCH (09:47)
[2020-09-02] MEDS: CLOTRIMAZOLE 1% 15 GM TUBE TP SCH ×2 (09:47→17:20)
[2020-09-02] MEDS: MAGNESIUM OXIDE 400 MG TABLET PO SCH ×2 (09:47→17:24)
[2020-09-02] MEDS: DOCUSATE SODIUM 100 MG CAPSULE PO SCH (09:47)
[2020-09-02] MEDS: LACOSAMIDE 50 MG TABLET PO SCH ×2 (09:47→17:24)
[2020-09-02] MEDS: BISACODYL (5 MG) 5 MG TABLET.DR PO SCH (09:47)
[2020-09-02] MEDS: ACIDOPHILUS/BULGARICUS 1 EACH TAB.CHEW PO SCH (09:47)
[2020-09-02] MEDS: ENSURE ENLIVE 237 ML LIQUID (VANILLA) PO SCH ×3 (09:49→17:19)
[2020-09-02] MEDS: Z GUARD REMEDY 2 OZ OINT TP SCH (09:49)
[2020-09-02] MEDS: POLYVINYL ALCOHOL 15 ML BOTTLE EACHEYE PRN ×2 (09:49→17:19)
--- NOTE | 2020-09-02 15:19 | NUR ---
Family Contact: SW called the pts , Eileen ([phone]), and informed her that the pt is going to be discharged to [facility] tomorrow. SW went over the medications and explained the discharge process.
[2020-09-02 16:00] VITALS: BP 90/62
[2020-09-02] MEDS: ENOXAPARIN SODIUM 40 MG/0.4 ML DISP.SYRIN SQ SCH (17:28)
[2020-09-02 20:20] VITALS: BP 129/74
[2020-09-02 20:58] VITALS: BP 129/74
[2020-09-02] MEDS: POLYETHYLENE GLYCOL 3350 17 GM POWD.PACK PO SCH (21:06)
[2020-09-02] MEDS: ATORVASTATIN 10 MG TABLET PO SCH (21:07)
[2020-09-02] MEDS: OLANZAPINE 2.5 MG TABLET PO SCH (21:07)
[2020-09-02] MEDS: SENNOSIDES 8.6 MG TABLET PO SCH (22:22)
[2020-09-02] MEDS: LORAZEPAM 0.5 MG TABLET PO PRN (23:20)
--- NOTE | 2020-09-02 23:22 | NUR ---
RN NOTE: ANXIETY PATIENT IS NOTED TO BE ANXIOUS, RESTLESS. PRN ATIVAN 0.5 MG 1 TAB PO ADMINISTERED. WILL CONTINUE TO MONITOR FOR ANY CHANGES.
[2020-09-03] MEDS: Z GUARD REMEDY 4 OZ OINT TP PRN (03:15)
[2020-09-03 06:22] LABS: BASOPHILS % (AUTO) 0.5 % (0.0-2.0); EOSINOPHILS % (AUTO) 2.8 % (0.0-6.0); HEMATOCRIT 33 % (39-51); HEMOGLOBIN 11.1 g/dL (13.5-17.5); LYMPHOCYTES # (AUTO) 2.1 /CMM (0.8-4.8); LYMPHOCYTES % (AUTO) 36.3 % (20.0-44.0); MEAN CORPUSCULAR HGB CONC 34 g/dl (31.0-36.0); MEAN CORPUSCULAR VOLUME 95 fL (80-96); MONOCYTES # (AUTO) 0.6 /CMM (0.1-1.30); MONOCYTES % (AUTO) 11.3 % (2.0-12.0); NEUTROPHILS # (AUTO) 2.8 /CMM (1.8-8.9); NEUTROPHILS % (AUTO) 49.1 % (43.0-81.0); PLATELET COUNT (AUTO) 207 /CMM (150-450); RED BLOOD CELL COUNT(AUTO) 3.45 MIL/uL (4.5-6.0); WHITE BLOOD COUNT (AUTO) 5.7 K/uL (4.3-11.0)
[2020-09-03 06:48] LABS: ALBUMIN 2.9 g/dL (3.4-5.0); BILIRUBIN,TOTAL 0.4 mg/dL (0.2-1.0); CALCIUM, SERUM 8.8 mg/dL (8.5-10.1); CREATININE 1.2 mg/dL (0.6-1.3); POTASSIUM 3.9 mmol/L (3.5-5.1); TOTAL PROTEIN, SERUM 5.9 g/dL (6.4-8.2)
[2020-09-03 08:00] VITALS: BP 100/58
[2020-09-03 09:00] VITALS: BP 100/58
[2020-09-03] MEDS: BISACODYL (5 MG) 5 MG TABLET.DR PO SCH (09:00)
[2020-09-03] MEDS: DOCUSATE SODIUM 100 MG CAPSULE PO SCH (09:00)
[2020-09-03] MEDS: METOPROLOL TARTRATE 25 MG TABLET PO SCH (09:00)
--- NOTE | 2020-09-03 09:00 | NUR ---
RN NOTE- NO CHANGES RECEIVED PATIENT DINING ROOM IN CARTER CHAIR, AWAKE A/O X1. HAS FLAT AFFECT, DISORGANIZED, CONFUSED, RESTLESS. DENIES SI AT THIS TIME,
[2020-09-03] MEDS: ACIDOPHILUS/BULGARICUS 1 EACH TAB.CHEW PO SCH (09:17)
[2020-09-03] MEDS: FAMOTIDINE (20 MG) 20 MG TABLET PO SCH (09:17)
[2020-09-03] MEDS: MULTIVITAMINS,THERAGRAN 1 UDTAB TABLET PO SCH (09:17)
[2020-09-03] MEDS: CHOLECALCIFEROL 1,000 UNIT TABLET (VIT D3) PO SCH (09:17)
[2020-09-03] MEDS: LACOSAMIDE 50 MG TABLET PO SCH (09:17)
[2020-09-03] MEDS: MAGNESIUM OXIDE 400 MG TABLET PO SCH (09:17)
[2020-09-03] MEDS: DIVALPROEX SODIUM 125 MG CAP.SPRINK PO SCH ×2 (09:17→12:32)
[2020-09-03] MEDS: ASPIRIN 81 MG TAB.CHEW PO SCH (09:17)
[2020-09-03] MEDS: Z GUARD REMEDY 2 OZ OINT TP SCH (09:18)
[2020-09-03] MEDS: ENSURE ENLIVE 237 ML LIQUID (VANILLA) PO SCH ×2 (09:18→12:32)
[2020-09-03] MEDS: CLOTRIMAZOLE 1% 15 GM TUBE TP SCH (09:18)
--- NOTE | 2020-09-03 13:39 | NUR ---
Discharge Note: Pt will be discharged to [facility] located at [address] [place] [address]; ([phone]). Pt will be transported via [facility] at 12pm. Pts , Eileen ([phone]), agreed to this placement. Upon discharge, the pt appears to be in a dysphoric mood and presents with a distressed affect. Pt appears to be oriented x2 (time and self). Pt appears to be groomed and appropriately dressed. Pt appears to be ambulatory with an unsteady gait. Pt denies suicidal and homicidal ideation and denied visual and auditory hallucinations. Pt will continue to follow up with pts psychiatrist, Dr. Townsend, located at [address] [address], [place] [address]; ) and pts regional guide, Dr. Rios, located at [address] [facility], [address] [place] [address]; . Pt was not able to sign the Choice of Vendor form due to pts psychosis. RN and SW cosigned and the form was placed in the chart. The multidisciplinary exit care form was done, printed, signed, and given to the patient.
--- NOTE | 2020-09-03 15:35 | NUR ---
RN NOTE- [place] DC AT THIS TIME TO ASSISTED FACILITY VIA GURNEY AND AMBULANCE. REPORT PHONED TO JOSEPH AT [facility]. VS STABLE, PT ALERT CONFUSED. ORIENTED TO SELF ONLY. PT REFUSED PHOTOS OF SACRUM AND SKIN. BECAME IRRITATED AND OPPOSITIONAL. VALUABLES RETURNED TO PT, AFTERCARE AND PLAN OF CARE REVIEWED W AMBULANCE STAFF. VERBALIZED UNDERSTANDING . ESCORTED OFF UNIT BY RN.
== END 2020-09-03 15:45 | DRG 885 ==
LOC: ER 23:14 → GPS 08-23 04:50
PROVIDERS: ADMIT Psychiatry & Neurology Psychosomatic Medicine; ATTEND Nurse Practitioner Acute Care
DX: F29 Unspecified psychosis not due to a substance or known physiological condition (principal); F01.50 Vascular dementia, unspecified severity, without behavioral disturbance, psychotic disturbance, mood disturbance, and anxiety; G93.41 Metabolic encephalopathy; E44.0 Moderate protein-calorie malnutrition; N39.0 Urinary tract infection, site not specified; K21.9 Gastro-esophageal reflux disease without esophagitis; I10 Essential (primary) hypertension; G40.909 Epilepsy, unspecified, not intractable, without status epilepticus; Z86.73 Personal history of transient ischemic attack (TIA), and cerebral infarction without residual deficits; D64.9 Anemia, unspecified; Z86.711 Personal history of pulmonary embolism; F25.9 Schizoaffective disorder, unspecified; E88.09 Other disorders of plasma-protein metabolism, not elsewhere classified; Z68.23 Body mass index [BMI] 23.0-23.9, adult; B96.20 Unspecified Escherichia coli [E. coli] as the cause of diseases classified elsewhere; B36.9 Superficial mycosis, unspecified; M62.81 Muscle weakness (generalized); Z20.822 Contact with and (suspected) exposure to COVID-19
CPT/HCPCS: 36415; 70450-TC; 80048-TC; 80053-TC; 80061-TC; 80076-TC; 80164-TC; 81001; 82962-TC; 83735-TC; 84100-TC; 85025-TC; 87081-TC; 87086-TC; 87186-TC; 92526; 92611-TC; 97112-TC; 97116-TC; 97530-TC; C9803; G0480; J1650; J3490